=== PATIENT | male | born 1975 | race Caucasian/White ===

== ENCOUNTER 2017-05-12 09:41 | Observation (INO) | payer BC ==
[2017-05-12] MEDS ORDERED: ASPIRIN CHEW 81 MG TABLET PO STA (10:08)
--- NOTE | 2017-05-12 10:08 | ED Physician Documentation ---
History of Present Illness - Stated complaint Stated Complaint: CHEST PX - Chief complaint Chief Complaint: Cardiac - Additonal information Additional information: hx from pt 41 male hc CVA HTN , strong fhx CAD mother father and brother age 41 non smoker L chest rad to arm pain with associated breath int for 10 days, rad to axillae, describes as ache presently zero was in [place] when it started flew back sx persists no NV abd pain no leg edema cough no fever Review of Systems Constitutional: denies: Fever Cardiac: reports: Chest pain / pressure Respiratory: reports: Dyspnea, Cough GI: denies: Abdominal Pain, Nausea, Vomiting Musculoskeletal: denies: Neck pain, Back pain, Extremity pain, Extremity swelling Neurologic: denies: Generalized weakness Endocrine: denies: Easy bruising / bleeding Immunocompromised: denies: Immunocompromised PD PAST MEDICAL HISTORY - Past Medical History Past Medical History: Yes Cardiovascular: Hypertension Neuro: TIA GI: GERD - Past Surgical History Past Surgical History: Yes - Present Medications Home Medications: Ambulatory Orders Medication Instructions Recorded Confirmed Enalapril Maleate [Vasotec] 20 mg PO DAILY 05/12/17 05/12/17 Omeprazole Magnesium 20 mg PO DAILY 05/12/17 05/12/17 - Allergies Allergies/Adverse Reactions: Allergies Allergy/AdvReac Type Severity Reaction Status Date / Time indomethacin Allergy Unknown Verified 05/12/17 11:06 - Social History Does the pt smoke?: No Smoking Status: Never smoker Does the pt have substance abuse?: No PD ED PE NORMAL - Vitals Vital signs reviewed: Yes - General General: Alert and oriented X 3 - HEENT HEENT: PERRL - Neck Neck: Supple, no meningeal sign - Cardiac Cardiac: RRR, No murmur - Respiratory Respiratory: No respiratory distress, Clear bilaterally - Abdomen Abdomen: Soft, Non tender - Derm Derm: Normal color - Extremities Extremities: No deformity, No tenderness to palpate, Normal ROM s pain, No edema , No calf tenderness / cord - Neuro Neuro: Alert and oriented X 3 Results - Vitals Vitals: Vital Signs - 24 hr 05/12/17 05/12/17 09:51 10:50 Temperature 36.8 C Heart Rate 79 68 Respiratory 17 16 Rate Blood Pressure 141/101 H 132/95 H O2 Saturation 98 98 Oxygen O2 Source Room air - EKG (time done) 0950 Rate: Rate (enter#) Rhythm: NSR [place]: Normal Intervals: Normal NV Ischemia: ST elevation c/w ischemia - Labs Labs: Laboratory Tests 05/12/17 05/12/17 05/12/17 10:00 10:00 10:00 WBC 6.6 RBC 5.28 Hgb 16.3 Hct 46.9 MCV 88.9 MCH 30.8 MCHC 34.7 RDW 13.3 Plt Count 285 MPV 8.1 Neut # 3.8 Lymph # 2.3 [place] # 0.4 Eos # 0.1 Baso # 0.0 Absolute Nucleated RBC 0.00 Nucleated RBC % 0.1 Sodium 139 Potassium 3.7 Chloride 100 L Carbon Dioxide 26 Anion Gap 13.0 BUN 17 Creatinine 1.0 Estimated GFR (MDRD) 82 L Glucose 83 Calcium 9.6 Total Bilirubin 1.1 H AST 24 ALT 25 Alkaline Phosphatase 40 L Troponin I < 0.04 Total Protein 8.0 Albumin 4.5 Globulin 3.5 Albumin/Globulin Ratio 1.3 Lipase 14 L - Rads (name of study) CTPA Radiology: See rad report (no PE, small curvilinear reticular density possible AVM (this was angio study)) PD MEDICAL DECISION MAKING - ED course ED course: 41 male- numerous sig risk factors and concerning story - HEART score 4 - merits obs for stres test echo etc Departure - Departure Disposition: ED Place in Observation Clinical Impression: Chest pain, rule out acute myocardial infarction Chest pain Qualifiers: Chest pain type: unspecified Qualified Code(s): R07.9 - Chest pain, unspecified Condition: Good
[2017-05-12 10:15] LABS: BASOPHILS % (AUTO) 0.6 %; EOSINOPHILS # (AUTO) 0.1 10^3/uL (0.0-0.7); EOSINOPHILS % (AUTO) 2.1 %; HCT - HEMATOCRIT 46.9 % (42.0-52.0); HGB - HEMOGLOBIN 16.3 g/dL (14.0-18.0); LYMPHOCYTES # (AUTO) 2.3 10^3/uL (1.5-3.5); LYMPHOCYTES % (AUTO) 34.2 %; MEAN CORPUSCULAR HEMOGLOBIN 30.8 pg (27.0-31.0); MEAN CORPUSCULAR HGB CONC 34.7 g/dL (32.0-36.0); MEAN CORPUSCULAR VOLUME 88.9 fL (80.0-94.0); MEAN PLATELET VOLUME 8.1 fL (7.4-11.4); MONOCYTES # (AUTO) 0.4 10^3/uL (0.0-1.0); MONOCYTES % (AUTO) 5.5 %; NEUTROPHILS # (AUTO) 3.8 10^3/uL (1.5-6.6); NEUTROPHILS % (AUTO) 57.6 %; NUCLEATED RED BLOOD CELLS AUTO 0.1 /100WBC; RED BLOOD COUNT 5.28 10^6/uL (4.70-6.10); RED CELL DISTRIBUTION WIDTH 13.3 % (12.0-15.0); UNCORRECTED WHITE BLOOD COUNT 6.6 x10^3/uL; WHITE BLOOD COUNT 6.6 x10^3/uL (4.8-10.8)
[2017-05-12 10:25] LABS: ALBUMIN/GLOBULIN RATIO 1.3 (1.0-2.2); BILIRUBIN,TOTAL 1.1 mg/dL (0.2-1.0); CALCIUM 9.6 mg/dL (8.5-10.3); POTASSIUM 3.7 mmol/L (3.5-5.0)
[2017-05-12] MEDS ORDERED: IOPAMIDOL-300 100 ML VIAL ONE (10:49)
[2017-05-12] MEDS ORDERED: IOPAMIDOL-300 100 ML VIAL IVP ONE (11:25)
--- NOTE | 2017-05-12 11:30 | CT Preliminary Report ---
Exam: CT CHEST ANGIO (PE) IMPRESSION: 1. No pulmonary emboli. 2. Small curvilinear reticular density right middle lobe series 5 image 100. Possible small AV malfor [facility] RADIA SITE ID: [id number]
--- NOTE | 2017-05-12 11:33 | CT Report ---
EXAM: CT ANGIOGRAM CHEST EXAM DATE: 05/12/2017 11:08 AM. CLINICAL HISTORY: Cp recent plane from [place]. COMPARISON: None. TECHNIQUE: Routine helical imaging was performed through the chest in the pulmonary arterial phase. I V Contrast: 80 cc Isovue 300. Reconstructions: Coronal 3-D MIP reconstructions.Sagittal and coronal. In accordance with CT protocol optimization, one or more of the following dose reduction techniques w ere utilized for this exam: automated exposure control, adjustment of mA and/or KV based on patient s ize, or use of iterative reconstructive technique. FINDINGS: Pulmonary Arteries: Diagnostic quality: Adequate through the segmental arteries. No evidence for acute or chronic pulmona ry emboli. RV/LV is within normal limits. There is no interventricular septal bowing. There is no reflux of cont rast material in the IVC. Lungs/Pleura: Small curvilinear reticular density right middle lobe series 5 image 100. No consolidat ion, or edema. No effusions or pneumothorax. Mediastinum: Subcentimeter mediastinal lymph nodes No cardiac enlargement or adenopathy. Thoracic Aorta: Unremarkable. Upper Abdomen: Unremarkable. Other: None. IMPRESSION: 1. No pulmonary emboli. 2. Small curvilinear reticular density right middle lobe series 5 image 100. Possible small AV malfor mation RADIA Referring Provider Line: [phone] SITE ID: [id number]
[2017-05-12] MEDS ORDERED: ACETAMINOPHEN 325 MG TABLET PO PRN (12:28)
[2017-05-12] MEDS ORDERED: PROCHLORPERAZINE 10 MG/2 ML VIAL IVP PRN (12:28)
[2017-05-12] MEDS ORDERED: HYDROmorphone 0.5 MG/0.5 ML SYRINGE IVP PRN (12:28)
[2017-05-12] MEDS ORDERED: SODIUM CHLORIDE FLUSH 0.9% 10 ML SYRINGE IVP PRN (12:28)
[2017-05-12] MEDS ORDERED: ZOLPIDEM 5 MG TABLET PO PRN (12:28)
[2017-05-12] MEDS ORDERED: NITROGLYCERIN SL 0.4 MG TABLET SL PRN (12:34)
[2017-05-12 12:53] LABS: INR 1.1 (0.8-1.2); PT - PROTHROMBIN TIME 11.9 secs (9.9-12.6)
[2017-05-12] MEDS ORDERED: FLU VACCINE QS 2017-2018 60 MCG/0.5 ML SYRINGE IM ONE (13:40)
[2017-05-12] MEDS: LISINOPRIL 5 MG TABLET PO SCH (14:39)
[2017-05-12] MEDS: ENOXAPARIN 40 MG/0.4 ML SYRINGE SUBQ SCH (14:39)
[2017-05-12] MEDS: FAMOTIDINE 20 MG TABLET PO SCH (14:39)
[2017-05-12] MEDS: SODIUM CHLORIDE FLUSH 0.9% 10 ML SYRINGE IVP SCH ×2 (14:40→21:56)
[2017-05-13] MEDS: SODIUM CHLORIDE FLUSH 0.9% 10 ML SYRINGE IVP SCH ×2 (06:09→13:52)
[2017-05-13 06:20] LABS: BUN - BLOOD UREA NITROGEN 15 mg/dL (6-20); CALCIUM 9.7 mg/dL (8.5-10.3); CARBON DIOXIDE - CO2 28 mmol/L (21-32); CHLORIDE 102 mmol/L (101-111); CHOL/HDL RATIO 4.3 (<5.0); CHOLESTEROL 210 mg/dL; CREATININE 1.1 mg/dL (0.6-1.2); GFR - MDRD 74 (>89); GLUCOSE 94 mg/dL (70-100); HDL CHOLESTEROL 49 mg/dL; LDL/HDL RATIO 2.9 (<3.6); POTASSIUM 4.6 mmol/L (3.5-5.0); SODIUM 139 mmol/L (135-145); TRIGLYCERIDES 91 mg/dL; VLDL CHOLESTEROL 18 mg/dL
[2017-05-13] MEDS ORDERED: ASPIRIN EC 81 MG TABLET PO SCH (09:00)
[2017-05-13] MEDS ORDERED: POLYETHYLENE GLYCOL 3350 17 GM PACKET PO SCH (09:00)
--- NOTE | 2017-05-13 09:30 | HISTORY & PHYSICAL EXAMINATION ---
[address] [address] DATE OF SERVICE: 05/12/2017 Physician: Aruna Washington MD HISTORY OF PRESENT ILLNESS: This is a 41-year-old white male with a history of hypertension, hyperlipidemia, compliant with treatment, who presents with chest pain. PAST MEDICAL HISTORY: Hypertension and hyperlipidemia on enalapril and Lipitor. CHIEF COMPLAINT: Chest pain HISTORY OF PRESENT ILLNESS: The patient states that over the past 3-4 weeks, he has had increased stress regarding his work and family. Over the past 1 week, he has developed left anterior chest pressure-type pain with associated left inner arm pain and overall left arm numbness. The symptoms would last 5- 10 minutes and resolved with rest. He never sought medical attention for these. In the last 2 days, he has noticed that they occur even at night, but thought that they were worsened when he laid on his left arm in bed. Because of an episode that awoke him from sleep when he laid on the left side, he decided to come to the emergency room with these complaints today. In the emergency room, there has been no discomfort. Since being admitted, there has been no discomfort. He remembers having a stress test in 2013 for routine evaluation because of the family history and states that this was within normal limits. He does not know what kind he had. There has never been an angiogram. ALLERGIES: INDOMETHACIN. MEDICATIONS AT HOME 1. Enalapril 20 mg daily. 2. Omeprazole 20 mg daily. 3. Possibly Lipitor daily. FAMILY HISTORY: Positive for early coronary disease with his brother having an AK at the age of 45 and other family members at young ages as well. There is no diabetes in the family. SOCIAL HISTORY: The patient never smoked, drinks alcohol only socially, never uses illegal drugs. He is employed, has his own business. He lives with his . REVIEW OF SYSTEMS: The patient recently returned from a trip to [place] and on the plane ride had this chest discomfort with left arm numbness as well as new sweating and near syncope with "vision nearly blacked out." He did not have full syncope. He was able to walk to the airplane restroom and put on a warm wash cloth and relaxed with deep breaths, return to his seat and felt fine for the rest or trip, did not seek medical attention for this. REVIEW OF SYSTEMS: A comprehensive review of systems was performed and the pertinent positives are as listed here only, the others are negative. PHYSICAL EXAMINATION GENERAL: Normal appearing male in no distress, supine in bed. VITAL SIGNS: Blood pressure 140/100, heart rate 80 in sinus rhythm, afebrile. O2 saturation 98% on room air. HEENT: Unremarkable with moist oral mucosa. NECK: Shows no JVD, thyromegaly, or lymphadenopathy or carotid bruits. LUNGS: Clear. HEART: Heart sounds normal. No audible murmurs. No heave. ABDOMEN: Soft, normal bowel sounds, nontender. EXTREMITIES: No clubbing, cyanosis or edema. No calf tenderness or cords. NEUROLOGIC: Grossly intact. LABORATORY DATA: Normal electrolytes, normal BUN and creatinine. Troponin not detectable at less than 0.04. Lipase 14, normal CBC and differential. No chest x-ray was done, but a CT angio was done to rule out pulmonary embolism because of the recent air travel and this showed no evidence of pulmonary embolism. EKG: Normal sinus rhythm and early repolarization, otherwise within normal limits. IMPRESSION/DIAGNOSES 1. Accelerating chest pain. 2. Hypertension. 3. Abnormal EKG 4. Early family history of heart disease. 5. Unknown cholesterol status ASSESSMENT AND PLAN: Because of this patient's risk factors of early family history of heart disease and hypertension and unknown lipid level along with typical symptoms (except for the pain elicited by lying on his left arm), he will be placed in observation. Telemetry. Cycle troponins. Order sublingual nitroglycerin p.r.n. pain. Obtain EKG p.r.n. pain. obtain a fasting am lipid profile blood test. Proceed to a stress test in the morning. If abnormal stress testing, then proceed to an angiogram. Otherwise, further outpatient management by his primary care physician. DVT prophylaxis: Lovenox subcutaneous. CODE STATUS: Full code ATTESTATION: It is reasonable to expect that the patient will be discharged or transferred to another facility with 96 hours: Yes. Dictating Provider: MD MONSERRAT De León/ TD: 05/13/2017 09:50 LANA
[2017-05-13] MEDS ORDERED: REGADENOSON 0.4 MG/5 ML SYRINGE IVP ONE ×2 (12:10→13:38)
[2017-05-13] MEDS: FAMOTIDINE 20 MG TABLET PO SCH (13:51)
[2017-05-13] MEDS: LISINOPRIL 5 MG TABLET PO SCH (13:52)
[2017-05-13] MEDS: ENOXAPARIN 40 MG/0.4 ML SYRINGE SUBQ SCH (13:52)
--- NOTE | 2017-05-13 15:09 | Discharge Plan ---
Discharge Plan Disposition: Home, Self Care Condition: Fair Prescriptions: Nitroglycerin [Nitrostat] 0.4 mg SL Q5MIN PRN #100 tablet PRN Reason: Chest Pain Atorvastatin [Lipitor] 40 mg PO QPM #30 tablet Carvedilol [Coreg] 3.125 mg PO BID #60 tablet Diet: Cardiac Activity Restrictions: Activity as Tolerated Shower Restrictions: No Driving Restrictions: No Instruction Topics: Angina Unstable, Nitroglycerin Fast Acting, Transradial Cardiac Cath Additional Instructions or Follow Up instructions: Your stress test showed a possible old heart attack (or this may be an image artifact). Please start taking the new prescriptions for Carvedilol, Lipitor and a daily aspirin. A prescription for Nitroglycerin use under the tongue if needed for an episode of chest pain has also been prescribed. If 3 Nitro's, spaced 5-10 min apart, does not relieve your symptoms, call an ambulance and come to the ER. You should see your doctor within a week for further evaluation and management. Please resume taking your Enalapril and Omeprazole. No Smoking: If you smoke, Please STOP! Call for help.
--- NOTE | 2017-05-13 15:25 | Nuclear Medicine Prelim Report ---
Exam: NM MYOCARDIAL PERFUSION STR/RST IMPRESSION: 1. Small, mild, distal anteroseptal fixed defect. No other convincing fixed or reversible perfusion d efects. 2. Left ventricular ejection fraction of 61%. 3. Normal segmental and global wall motion. 4. Normal left ventricular cavity size, no change with stress. RADIA The call report notification system was initiated by Dr. Juan Manuel Aguayo at 14:35 hrs on 05/13/17. The above findings were discussed with Dr. Washington by Dr. Juan Manuel Aguayo at 14:40 hrs on 05/13/17. SITE ID: [id number]
--- NOTE | 2017-05-13 15:28 | Nuclear Medicine Report ---
EXAM: SINGLE-ISOTOPE PHARMACOLOGICAL STRESS TEST WITH REGADENOSON. SINGLE-ISOTOPE AND ONE-DAY REST/STRESS M YOCARDIAL PERFUSION SCANS WITH TOMOGRAPHIC IMAGING, QUANTITATIVE ANALYSIS, WALL MOTION ANALYSIS AND C ALCULATION OF EJECTION FRACTION. EXAM DATE: 05/13/2017 01:41 PM. CLINICAL HISTORY: Chest Pain. COMPARISON: None available. TECHNIQUE: After the intravenous administration of 11 mCi of Tc-99m sestamibi, a rest myocardial perfusion scan was done with tomography. Motion correction was applied when appropriate. A pharmacological stress was performed with the infusion of 0.4 mg regadenoson per protocol. Accordin g to protocol, 41.8 mCi of Tc-99m sestamibi was injected for stress myocardial perfusion scan. Motion correction was applied when appropriate. Gated tomographic images were obtained for wall motion analysis and computation of left ventricular e jection fraction. FINDINGS: Images show a small, mild, fixed defect in the distal anteroseptal wall. No other convincin g fixed or reversible perfusion defects. Wall motion analysis demonstrates no focal wall motion abnormality. The left ventricular end-diastolic volume is 72 cc. The left ventricular end-systolic volume is 28 cc . The left ventricular ejection fraction is calculated to be 61%. IMPRESSION: 1. Small, mild, distal anteroseptal fixed defect. No other convincing fixed or reversible perfusion d efects. 2. Left ventricular ejection fraction of 61%. 3. Normal segmental and global wall motion. 4. Normal left ventricular cavity size, no change with stress. RADIA The call report notification system was initiated by Dr. Juan Manuel Aguayo at 14:35 hrs on 05/13/17. The above findings were discussed with Dr. Washington by Dr. Juan Manuel Aguayo at 14:40 hrs on 05/13/17. Referring Provider Line: [phone] SITE ID: [id number]
[2017-05-13] MEDS ORDERED: ATORVASTATIN 40 MG TABLET PO SCH (16:00)
[2017-05-13] MEDS ORDERED: CARVEDILOL 3.125 MG TABLET PO SCH (16:00)
[2017-05-13 16:09] VITALS: BP 114/84
--- NOTE | 2017-05-14 07:47 | CARDIAC PROCEDURE NOTE ---
DATE OF SERVICE: 05/13/2017 Physician: Aruna Washington MD DATE OF PROCEDURE 05/13/2017 LOCATION: Observation. After signing informed consent, the patient started to undergo a standard Griffin treadmill exercise test. There was poor contact with the electrodes and artifact with every foot step and the automatic blood pressure cuff would not work on several attempts, therefore, this treadmill stress test was aborted. There was no usable EKG information. After signing informed consent for a Lexiscan stress test, the patient underwent pharmacological stress testing with myocardial perfusion imaging. Resting heart rate 72, peak heart rate 135 after Lexiscan. Blood pressure response was normal. RESTING EKG: Normal sinus rhythm, early RS transition, early repolarization. EKG T PEAK HR SHOWED: new anterior T-wave flattening across the entire precordium, which returned to baseline after 2 minutes. The patient developed significant shortness of breath termed "just like his shortness of breath during chest pain." This resolved spontaneously without medications. The patient had no chest pain , left arm pain or left arm numbness. IMPRESSION: Borderline abnormal EKG changes during pharmaceutical stress test. Nuclear images reported separately. TD: 05/13/2017 16:53 LANA
--- NOTE | 2017-05-20 19:00 | DISCHARGE SUMMARY ---
DATE OF SERVICE: 05/13/2017 Physician: Aruna Washington MD HISTORY OF PRESENT ILLNESS: This is a 41-year-old male of descent, who presented with complain ts of chest pain. He has a history of hypertension and GERD. He has a family history of early coronary di sease in the family, brother having an DC at the age of 45. Because of his risk factors the patient was place d in observation for evaluation and management of his chest pain. HOSPITAL COURSE ON DISCHARGE DIAGNOSES 1. Old myocardial infarction. The patient had normal troponin values x3. He went on to have a nucl ear pharmaceutical stress test and this showed an area of nonreversible defect (scar) of the distal anter oseptal zone. The EF was 61%. There were no other areas that showed ischemia or reperfusion. Because of th is finding, the patient was placed on Coreg and YUE inhibitor, daily aspirin and a statin and advised to follow up for further evaluation and management with a transition program manager. The patient is visiting in the [facility], normally lives in [facility] and is [facility] where he plans to have followup with a PCP an d referral to a transition program manager. The patient was advised no active exercise or over exertion until he has followup with a transition program manager. 2. Unstable angina. This patient had features of his chest pain that were unlike angina (when he la id on his left arm to sleep, he developed similar symptoms in the left anterior chest to those when he was awak e and active or nervous). Because of this patient's risk factors including male gender, hypertension, hyperlipidemia, early family history of heart disease and unknown cholesterol status, he was started on sublingual nitroglycerin p.r.n. and advised as in #1. The patient had no symptoms of this chest pain while being evaluated here. 3. Elevated cholesterol. The patient had unknown cholesterol status and blood tests were done here and a fasting lipid panel showed a total cholesterol of 210, LDL 143, triglycerides 91, HDL 49. The patien t was started on Lipitor 40 mg daily and a heart healthy diet was reviewed with the patient by myself. Fur ther management of this should be done with his PCP and/or transition program manager. 4. Hypertension. This patient's blood pressure was well controlled during the admission (102/65, 13 ). His YUE inhibitor was continued throughout this course. The patient had a resting echo done here [facility] did show mild LVH, as well as EF of 70%, and no other striking abnormality. CONDITION AT DISCHARGE: Stable. ALLERGIES: INDOMETHACIN. MEDICATIONS AT THE TIME OF DISCHARGE 1. Sublingual nitroglycerin 0.4 mg p.r.n. 2. Xanax 1 mg p.o. at bedtime, 2 tablets were prescribed total. 3. Lipitor 40 mg at bedtime. 4. Carvedilol 3.125 p.o. b.i.d. 5. Vasotec 20 mg p.o. daily. 6. Omeprazole 20 mg p.o. daily. LABORATORY DATA AND IMAGING: Reviewed and summarized above. PHYSICAL EXAMINATION AT DISCHARGE VITAL SIGNS: Blood pressure 114/84, pulse of 62, sinus rhythm, O2 saturation 99% on room air. His entire physical exam was unremarkable including no carotid bruits and no heart murmur. FOLLOWUP: Follow up with PCP and referral to a transition program manager is advised, which he will do upon return to where he lives. CODE STATUS: FULL CODE. Time required to complete the entire discharge 45 minutes. TD: 05/20/2017 17:57
== END 2017-05-13 16:25 | disposition home or self-care (01) ==
LOC: ED 09:41 → OBS 12:28
PROVIDERS: ADMIT Internal Medicine; ATTEND Internal Medicine
DX: I25.2 Old myocardial infarction (principal); I20.0 Unstable angina; I11.9 Hypertensive heart disease without heart failure; E78.5 Hyperlipidemia, unspecified; K21.9 Gastro-esophageal reflux disease without esophagitis; Z86.73 Personal history of transient ischemic attack (TIA), and cerebral infarction without residual deficits; Z82.49 Family history of ischemic heart disease and other diseases of the circulatory system; Z63.8 Other specified problems related to primary support group
CPT/HCPCS: 36415; 71275; 78452; 80048; 80053; 80061; 83690; 84484; 85025; 85610; 93005; 93017; 93306; 96372; 96374; 99283; 99284; A9270; A9500; G0378; J1650; J2785; Q9967; 99282